=== PATIENT | male | born 1940 | race Caucasian/White ===

== ENCOUNTER 2017-12-13 09:33 | Inpatient (IN) | payer OTHER ==
[~2017-12-13] VITALS: Ht 188 cm; Wt 100.2 kg
[2017-12-13] VITALS (14 sets, daily range): BP systolic 33–145; BP diastolic 13–90
--- NOTE | ~2017-12-13 | HC ---
[facility] [place] [address] CONSULTATION Name: ROMA RAMON Room #: 241-P [facility] IN M.R.#: [id number] Admission: 12/13/17 Attend Phys: Yazan Miller MD Discharge: 12/13/17 Date of : 40 Report #: [id number] THIS REPORT FOR: //name// CC: ANSELMO unknown Yazan Miller PRIMARY CARE PHYSICIAN: Unknown. REFERRING PHYSICIAN: Dr. Miller. REASON FOR REFERRAL: Cardiac arrest. HISTORY OF PRESENT ILLNESS: The patient is a 77-year-old white male who was brought to Emergency Room following an apparent cardiac arrest. A pulmonary consultation was requested. The patient was apparently at work earlier today. He appears to have fallen sustaining left-sided chest injury. He complained of dyspnea following the fall and was taken to the Emergency Room. In the ER, the patient was found to be in pulseless electrical activity. He was given 3 rounds of epinephrine. The patient was also shocked en route to the Emergency Room. He was found to be in ventricular fibrillation. He was then taken to Radiology where a CT chest was performed. CT chest angiogram was attempted, but not able to do an adequate study. While in the CAT scan area, he again lost pulse, went into PEA. He was coded and brought back to the Emergency Room. A pulmonary consultation was then requested. When I arrived, the patient was intubated, was tachycardic. His pulses were weak and would at times loose the pulse. He does respond to boluses of epinephrine. He is now developing what appeared to be seizure-like activities. Admitting arterial blood gas showed profound acidosis with a pH of 6.7, pCO2 81, pO2 485. Serum bicarbonate was 22. CT chest did show [id number] left-sided pneumothorax, subcutaneous emphysema. In the ER, a chest tube plane was placed, a 12 gauge by Interventional Radiology. A central line was placed in the left femoral vein. We had coded the patient for a total of 45 minutes while in the ER, stabilizing the patient. He remains in the Emergency Room, vital signs remained relatively stable, pulse around 80s, respiratory rate is in the 20s, blood pressure 100/60 mmHg. Saturations adequate. Note the patient arrived in the ER around 9:[address] [address] CONSULTATION Name: ROMA RAMON Room #: [facility] IN ..#: [id number] Admission: 12/13/17 Attend Phys: Yazan Miller MD Discharge: 12/13/17 Date of : 40 Report #: [id number] PAST MEDICAL HISTORY: He has an apparent history of COPD, otherwise is incomplete. PAST SURGICAL HISTORY: Incomplete. HOME MEDICATION: Unknown. ALLERGIES: Unknown. FAMILY AND SOCIAL HISTORY: Unknown. REVIEW OF SYSTEMS: Deferred as the patient is intubated and unresponsive. PHYSICAL EXAMINATION: GENERAL: He is unresponsive, having episodic seizure-like activities throughout. VITAL SIGNS: As mentioned above. Currently pulse is 80, respiratory rate is 20, blood pressure is 120/70 mmHg, saturation is 98%. HEENT: Normocephalic, atraumatic. He is orally intubated. NECK: Supple, no lymphadenopathy or thyromegaly. CHEST: Breath sounds are fair, mild coarse breath sounds bilaterally. CARDIOVASCULAR: Heart sounds are distant. No obvious murmurs or gallop. Pulses are decreased throughout. ABDOMEN: Soft, no masses felt. GENITOURINARY: Deferred. RECTAL: Deferred. EXTREMITIES: Cool to touch, mild cyanosis. No obvious clubbing or edema. NEUROLOGIC: Notable for the patient is unresponsive with what appears to be decorticate posturing. LABORATORY DATA: CT chest as mentioned above. Preliminary finding shows [id number]-ln-marluhzx left-sided pneumothorax, subcutaneous emphysema. Portable chest x-ray shows ET tube approximately 2 cm above the js, chest tube was placed in the left now with reexpansion of the left lung, diffuse subcutaneous emphysema is noted. Right lung field shows increase in pulmonary vascular markings, but no consolidation. CT chest angiogram was a suboptimal study. Multiple rib fractures are noted on the left. The report says right-sided pneumothorax; the chest x-ray and chest CT actually shows left-sided pneumothorax. Initial sodium was 150, potassium 5.0, chloride 112, CO2 23, BUN is 20, creatinine is 1.3, glucose 200. Liver enzymes mildly elevated. WBC 13,800 without significant left shift. Hemoglobin is 11.5, platelets are normal. Initial blood gas was performed at 9:49 a.m., it revealed pH 6.78, pCO2 81, pO2 of 485. A followup arterial blood gas performed at around 11:38 a.m., showed pH 7.29, pCO2 77, pO2 160. Albumin 2.7. [facility] [address] [place] [address] CONSULTATION Name: ROMA RAMON Room #: 241-P DIS IN M.R.#: [id number] Admission: 12/13/17 Attend Phys: Yazan Miller MD Discharge: 12/13/17 Date of : 40 Report #: [id number] IMPRESSION: 1. Acute hypercapnic hypoxic respiratory failure in this 77-year-old white male. He sustained a major chest injury with rib fractures on the left along with a moderate pneumothorax on the left and subcutaneous emphysema. He has developed cardiac arrest with pulseless electrical activity. He now has seizure-like activities suggesting probable anoxic brain injury. Etiology appears to be a fall mechanism. The cause of his fall may be related to cardiac arrest resulting in major chest injury, exact mechanism remains unclear, but suspicious for cardiac event as an initial cause. 2. Chest injury involving left-sided rib fractures, pneumothorax, subcutaneous emphysema, a small bore chest tube was placed by IR. We will follow chest x-ray. If inadequate, given his presumed major injury, he may require a larger bore chest tube. 3. Encephalopathy, likely hypoxic brain injury, now with seizure-like activities. 4. Cardiac arrest with pulseless electrical activity, profound shock. No obvious evidence of massive pulmonary embolus with an adequate PaO2 on initial arterial blood gas. 5. Acute kidney injury with metabolic acidosis due to shock resulting in end-organ ischemia. 6. Moderately elevated liver enzymes due to shock liver. 7. Leukocytosis, likely reactive. 8. Apparent history of chronic obstructive pulmonary disease. 9. Incomplete history. I will obtain records from the family when available. 10. Acute kidney injury due to acute tubular necrosis due to shock. RECOMMENDATION: 1. We will aggressively resuscitate with IV fluids, vasopressors. Correct acid base disorder. We will need to follow renal function closely given increase in creatinine. He will need to be monitored closely in regards to his mental status change, concern for hypoxic and/or anoxic brain injury is likely. 2. Broad-spectrum antibiotics will be initiated. Follow up labs closely. DVT and GI prophylaxis will be addressed. Overall, prognosis felt to be guarded. Thank you for this consultation. <ELECTRONICALLY SIGNED> By: Andrea Brewster MD 12/14/17 1742 [id number] 1831 Andrea Brewster MD /nt
--- NOTE | ~2017-12-13 | EKG ---
[address] [address] ELECTROCARDIOGRAM REPORT Name: ROMA RAMON Room #: 241-P [facility] IN M.R.#: [id number] Admission: 12/13/17 Attend Phys: Yazan Miller MD Discharge: 12/13/17 Date of : 40 Report #: [id number] THIS REPORT FOR: //name// 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 : 1940 Requested By: Becky Zarco Order Number: [id number] MD: Tim Ulrich Measurements Intervals [place] Rate: 100 P: 0 NE: 204 QRS: -75 QRSD: 82 T: 79 QT: 343 QTc: 443 Interpretive Statements Sinus tachycardia with first-degree AV block Inferior infarct, old Cannot rule out anteroseptal infarct, age indeterminate Right bundle branch block No previous ECG available for comparison Electronically Signed On 12-14-2017 7:54:47 [place] by Tim Ulrich [email or web address] <ELECTRONICALLY SIGNED> By: Tim Ulrich MD, [facility] 12/14/17 0754 1122 1122 Tim Ulrich MD, [facility] /EPI
--- NOTE | ~2017-12-13 | 2DMMODE ---
[facility] [place] [facility] [place] [address] 2 D/M-MODE ECHOCARDIOGRAM Name: ROMA RAMON Room #: 241-P ADM IN M.R.#: [id number] Admission: 12/13/17 Attend Phys: Yazan Miller, Discharge: Date of : 40 Date of Service: 12/13/17 1514 Report #: [id number] THIS REPORT FOR: //name// APPROVED REPORT Study performed: 12/13/2017 14:21:28 EXAM: Comprehensive 2D, Doppler, and color-flow Echocardiogram Patient Location: ICU Room #: [facility] Status: routine BSA: 2.27 HR: 95 bpm BP: 62/41 mmHg Other Information Study Quality: Fair Technically limited study due to inability to position patient, lung disease, body habitus, patient on ventilator. Indications Cardiac arrest, COPD 2D Dimensions IVC: 25.00 mm Pulmonary Valve PV Peak Juaquin.: 0.52 m/s PV Peak Gr.: 1.07 mmHg Left Ventricle The left ventricle is normal size. There is normal left ventricular wall thickness. Left ventricular ejection fraction is severely decreased. LVEF is 25%. This study is not technically sufficient to allow evaluation of the LV diastolic function. Right Ventricle Right ventricle is dilated. Right ventricle is severely hypokinetic. Atria Left atrium is at the upper limits of normal. Right atrium is dilated. Aortic Valve Aortic valve is not well visualized. Aortic valve is calcified. No [facility] [address] [place] [address] 2 D/M-MODE ECHOCARDIOGRAM Name: ROMA RAMON Room #: 241-P ADM IN M.R.#: [id number] Admission: 12/13/17 Attend Phys: Yazan Miller, Discharge: Date of : 40 Date of Service: 12/13/17 1514 Report #: [id number] aortic regurgitation is present. There is no aortic valvular stenosis. Mitral Valve There is mitral annular calcification. There is no mitral valve regurgitation noted. No evidence of mitral valve stenosis. Tricuspid Valve The tricuspid valve is normal in structure. There is no tricuspid valve regurgitation noted. Pulmonic Valve The pulmonary valve is normal in structure. There is no pulmonic valvular regurgitation. Great Vessels The aortic root is normal in size. The inferior vena cava is dilated with no inspiratory collapse. Pericardium There is no pericardial effusion. <Conclusion> Very limited study Left ventricular ejection fraction is severely decreased. LVEF is 25%. Right ventricle is dilated and severely hypokinetic. Aortic valve is calcified. No aortic valvular stenosis or insufficiency. There is mitral annular calcification. There is no pericardial effusion. <ELECTRONICALLY SIGNED> By: Tim Ulrich MD, FACC 12/13/17 1514 1514 1514 Tim Ulrich MD, FACC /INF
--- NOTE | ~2017-12-13 | EKG ---
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 : 1940 Requested By: Becky Zarco Order Number: [id number] MD: Tim Ulrich Measurements Intervals [place] Rate: 118 P: ME: QRS: -91 QRSD: 154 T: 50 QT: 372 QTc: 522 Interpretive Statements Probable sinus rhythm with first-degree AV block Paired ventricular premature complexes Right bundle branch block Inferior infarct, age indeterminate No previous ECG available for comparison Electronically Signed On 12-14-2017 16:05:56 PRIMARY CARE PEDIATRICIAN by Tim Ulrich [email or web address] <ELECTRONICALLY SIGNED> By: Tim Ulrich MD, [facility] 12/14/17 1605 0941 0941 Tim Ulrich MD, [facility] /EPI
[2017-12-13 09:53] LABS: HEMOGLOBIN 13.6 gm/dL (14.0-18.0); MCH 29.6 pg (26.0-34.0); MCHC 30.9 g/dL (28.0-37.0); MCV 95.8 fL (80.0-100.0); PLATELET COUNT 184 thou/uL (150-400); RBC 4.59 mil/uL (4.50-6.00); RDW 14.3 % (10.5-14.5); WBC 13.8 thou/uL (4.0-11.0)
[2017-12-13 09:59] LABS: BE(vivo) -24.1 mmol/L (-2 to +3); PCO2 81.4 mmHg (35.0-45.0); PO2 485.4 mmHg (80.0-100.0); pH 6.785 (7.360-7.450); sO2 99.6 % (92.0-98.0)
[2017-12-13 10:02] LABS: CALCIUM 11.6 mg/dL (8.5-10.1); CREATININE 1.6 mg/dL (0.7-1.3); POTASSIUM 4.4 mmol/L (3.5-5.1)
[2017-12-13 10:10] LABS: ALBUMIN 2.7 g/dL (3.4-5.0); DIRECT BILIRUBIN 0.2 mg/dL (<0.1-0.3); TOTAL BILIRUBIN 0.4 mg/dL (<0.1-1.0); TOTAL PROTEIN 5.7 g/dL (6.4-8.2); TROPONIN-I 0.1 ng/mL (<0.06)
[2017-12-13 10:22] LABS: ABSOLUTE NEUTROPHILS 4.6 thou/uL (1.4-8.2)
[2017-12-13 11:46] LABS: BE(vivo) 7.3 mmol/L (-2 to +3); HCO3 36.2 mmol/L (22.0-26.0); PCO2 77.1 mmHg (35.0-45.0); PO2 160.6 mmHg (80.0-100.0); sO2 98.8 % (92.0-98.0)
[2017-12-13 12:08] LABS: HEMATOCRIT 35.5 % (42.0-52.0); MCH 29.9 pg (26.0-34.0); MCHC 32.3 g/dL (28.0-37.0); MCV 92.4 fL (80.0-100.0); PLATELET COUNT 171 thou/uL (150-400); RBC 3.84 mil/uL (4.50-6.00); RDW 13.8 % (10.5-14.5); WBC 22.8 thou/uL (4.0-11.0)
[2017-12-13 12:09] LABS: HEMOGLOBIN 11.5 gm/dL (14.0-18.0)
[2017-12-13 12:13] LABS: CREATININE 1.3 mg/dL (0.7-1.3)
[2017-12-13 12:15] LABS: CALCIUM 8.1 mg/dL (8.5-10.1)
[2017-12-13 12:52] LABS: POC CA IONIZED 4.5 mg/dL (4.5-5.3); POC CREATININE 1.1 mg/dL (0.6-1.3); POC HEMOGLOBIN 8.5 g/dL (14.0-18.0); POC POTASSIUM 3.8 mmol/L (3.5-5.1)
[2017-12-13 13:01] LABS: METAMYELOCYTES 1 %; PLATELET ESTIMATE NORMAL
[2017-12-13] MEDS ORDERED: LIPITOR10 MG PO (14:53)
[2017-12-13] MEDS ORDERED: DIGOXIN125 MCG PO (14:54)
[2017-12-13] MEDS ORDERED: SAVAYSA60 MG PO (14:54)
[2017-12-13] MEDS ORDERED: LASIX 20 MG TAB20 MG PO (14:55)
[2017-12-13] MEDS ORDERED: TOPROL XL25 MG PO (14:55)
[2017-12-13] MEDS ORDERED: TAMSULOSIN HCL0.4 MG PO (14:56)
[2017-12-13 15:26] LABS: CALCIUM 8.9 mg/dL (8.5-10.1); CREATININE 1.6 mg/dL (0.7-1.3); MAGNESIUM 1.9 mg/dL (1.8-2.4); POTASSIUM 4.1 mmol/L (3.5-5.1)
[2017-12-13 15:36] LABS: FIBRINOGEN 184.2 mg/dL (210-360)
[2017-12-13 15:44] LABS: D-DIMER 18.66 ug/mLFEU (0.19-0.50)
[2017-12-14 12:37] LABS: POC ANION GAP Outside Report Range mmol/L (7-16); POC BUN 24 mg/dL (7-18); POC CA IONIZED 6.1 mg/dL (4.5-5.3); POC CHLORIDE 108 mmol/L (98-107); POC CREATININE 1.2 mg/dL (0.6-1.3); POC GLUCOSE 252 mg/dL (70-99); POC HEMOGLOBIN 13.9 g/dL (14.0-18.0); POC POTASSIUM 4.4 mmol/L (3.5-5.1); POC SODIUM 145 mmol/L (136-145); POC TCO2 Outside Report Range mmol/L (21-32)
== END 2017-12-13 17:05 | DRG 208 ==
LOC: ER 09:33 → EROBS 11:04 → ICU 14:07
PROVIDERS: Emergency Medicine; Internal Medicine
PROC: 5A12012 Performance of Cardiac Output, Single, Manual (ICD-10-PCS; principal; 2017-12-13)
PROC: 0W9B30Z Drainage of Left Pleural Cavity with Drainage Device, Percutaneous Approach (ICD-10-PCS; principal; 2017-12-13)
PROC: 5A1935Z Respiratory Ventilation, Less than 24 Consecutive Hours (ICD-10-PCS; 2017-12-13)
DX: J96.22 Acute and chronic respiratory failure with hypercapnia (principal); G93.40 Encephalopathy, unspecified; N17.0 Acute kidney failure with tubular necrosis; E87.2 Acidosis; R57.9 Shock, unspecified; I42.8 Other cardiomyopathies; J44.9 Chronic obstructive pulmonary disease, unspecified; I46.9 Cardiac arrest, cause unspecified; I49.01 Ventricular fibrillation; D72.829 Elevated white blood cell count, unspecified; I50.9 Heart failure, unspecified; I48.91 Unspecified atrial fibrillation; I25.10 Atherosclerotic heart disease of native coronary artery without angina pectoris; I11.0 Hypertensive heart disease with heart failure; J96.21 Acute and chronic respiratory failure with hypoxia; Z79.899 Other long term (current) drug therapy; Z88.1 Allergy status to other antibiotic agents
CPT/HCPCS: 10078